=== PATIENT | female | born 1970 | race African-American/Black ===

== ENCOUNTER 2016-05-09 09:06 | Inpatient (IN) | payer MEDICARE ==
[2016-05-09] MEDS ORDERED: Nitroglycerin TAB 0.4 MG* 0.4 MG TAB SL ONE (09:49)
[2016-05-09] MEDS ORDERED: NS 0.9% 1000 ML* 1,000 ML IV ONE (09:49)
--- NOTE | 2016-05-09 09:53 | RAD ---
INDICATION: Chest pain. COMPARISON: Comparison is made with a prior chest x-ray study from January 05, 2014. TECHNIQUE: A portable view of the chest was obtained. FINDINGS: Cardiac and mediastinal contours appear to be within normal limits. The lungs are clear. No pleural effusion is seen. IMPRESSION: NO EVIDENCE FOR ACUTE DISEASE.
[2016-05-09 10:01] LABS: Hematocrit 38 % (35-47); Hemoglobin 12.4 g/dl (12.0-16.0); Mean Corpuscular HGB Conc 33 g/dl (31-36); Mean Corpuscular Hemoglobin 30 pg (27-31); Mean Corpuscular Volume 90 fL (80-97); Mean Platelet Volume 8 um3 (7.4-10.4); Red Blood Count 4.16 10^6/ul (4.0-5.4); Red Cell Distribution Width 14 % (10.5-15)
[2016-05-09] MEDS ORDERED: Aspirin TAB* 325 MG PO ONE (10:13)
--- NOTE | 2016-05-09 10:14 | ED ---
Kaur Diego Anna, scribed for Esther Leyva MD on 05/09/16 at 0931 . HPI Chest Pain - HPI Summary HPI Summary: Patient is a 44 y/o female coming to [facility] presenting with right-sided chest pain that began last night at 2230 last night. The pain lasted twenty minutes and was more intense than her baseline CP. She reports intermittent CP at baseline. At triage, she reported CP of severity 4/10, but this has since resolved. It was exacerbated by deep breaths, which is typical for her CP with her sarcoidosis. Her BP is not normally as high as 170/120, as it was at her pulmonologists office, who sent her here. Her history is significant for pulmonary sarcoidosis and bladder lymphoma. - History of Current Complaint Chief Complaint: EDHypertension Time Seen by Provider: 05/09/16 09:17 Hx Obtained From: Patient Pain Intensity: 4 Pain Scale Used: 0-10 Numeric - Allergy/Home Medications Allergies/Adverse Reactions: Allergies Allergy/AdvReac Type Severity Reaction Status Date / Time Sulfa Antibiotics Allergy Unknown See Comment Verified 05/09/16 09:15 chemo cocktail Allergy Airway Uncoded 05/09/16 09:15 Obstruction PMH/Surg Hx/FS Hx/Imm Hx Endocrine/Hematology History: Denies: Hx Diabetes, Hx Systemic Lupus Erythematosus Cardiovascular History: Reports: Other Cardiovascular Problems/Disorders - SARCOIDOSIS Denies: Hx Congestive Heart Failure, Hx Hypertension, Hx Pacemaker/ICD Respiratory History: Reports: Other Respiratory Problems/Disorders - Pulmonary sarcoidosis History: Reports: Hx Renal Disease - kidney stones 01/2011, Other Problems /Disorders - bladder lymphoma Denies: Hx Dialysis Musculoskeletal History: Denies: Hx Rheumatoid Arthritis Sensory History: Denies: Hx Hearing Aid Psychiatric History: Denies: Hx Panic Disorder - Cancer History Cancer Type, 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 Hx Chemotherapy: Yes - urinary bladder Hx Radiation Therapy: Yes - BLADDER - Surgical History Surgery Procedure, Year, and Place: JAW SURGERY WITH WIRES, bilat lung biopsy; lithrotripsy 2011 - Immunization History Date of Tetanus Vaccine: PT STATES UNSURE Date of Influenza Vaccine: NONE Infectious Disease History: No Infectious Disease History: Denies: Traveled Outside the [place] in Last 30 Days - Family History Known Family History: Negative: Cardiac Disease - Social History Alcohol Use: None Substance Use Type: Reports: Marijuana Substance Use Comment - Amount & Last Used: Weekly Smoking Status (MU): Never Smoked Tobacco Review of Systems Constitutional: Negative Eyes: Negative Positive: Chest Pain Psychological: Normal All Other Systems Reviewed And Are Negative: Yes Physical Exam Triage Information Reviewed: Yes Vital Signs On Initial Exam: Initial Vitals Temp Pulse Resp BP Pulse Ox 96.5 F 80 18 170/90 100 05/09/16 09:07 05/09/16 09:07 05/09/16 09:07 05/09/16 09:07 05/09/16 09:07 Vital Signs Reviewed: Yes Appearance: Positive: Well-Appearing, No Pain Distress Skin: Positive: Warm, Skin Color Reflects Adequate Perfusion, Dry Eyes: Positive: EOMI, JIGAR ENT: Positive: Pharynx normal, TMs normal Neck: Positive: Supple, Nontender Respiratory/Lung Sounds: Positive: Clear to Auscultation, Breath Sounds Present Cardiovascular: Positive: RRR. Negative: Murmur, Rub, Other - gallop Abdomen Description: Positive: Nontender, Soft. Negative: Distended, Guarding, Other: - rebound Bowel Sounds: Positive: Present Diagnostics - Vital Signs Vital Signs Temp Pulse Resp BP Pulse Ox 05/09/16 09:07 96.5 F 80 18 170/90 100 - Laboratory Result Diagrams: 05/09/16 09:45 Lab Statement: Any lab studies that have been ordered have been reviewed, and results considered in the medical decision making process. - Radiology CXR Xray Interpretation: No Acute Changes Radiology Interpretation Completed By: Radiologist - IMPRESSION: NO EVIDENCE FOR ACUTE DISEASE. - EKG 0932 Cardiac Rate: NL - 80 bpm EKG Rhythm: Sinus Rhythm EKG Interpretation: LVH, no STEMI Chest Pain Course/Dx - Course Course Of Treatment: talked with Dr. Akins about pt given cp with new htn pt will be brought into hospital as obv - Diagnoses Provider Diagnoses: HTN (hypertension), Chest pain, Sarcoidosis - Provider Notifications Discussed Care Of Patient With: Dr. Akins (cloth bale header) at 0930. She is thinking the patient should be admitted. Dr. Canela (hospitalist) at 0942. Agrees to accept patient for admission. Discharge - Discharge Plan Condition: Stable Disposition: ADMITTED TO [facility] Referrals: Gustabo Rincon MD [Primary Care Provider] - The documentation as recorded by the Kaur suarez Anna accurately reflects the service I personally performed and the decisions made by me, Esther Leyva MD.
[2016-05-09 10:22] LABS: Albumin 4.3 g/dL (3.2-5.2); BUN/Creatinine Ratio 14.5 (8-20); EGFR African American 94.4 (>60); EGFR Non-African American 73.4 (>60); Globulin 3.2 g/dL (2-4); Total Bilirubin 0.4 mg/dL (0.2-1.0); Total Protein 7.5 g/dL (6.4-8.9)
[2016-05-09 10:24] LABS: Potassium 3.7 mmol/L (3.5-5.0)
[2016-05-09] MEDS ORDERED: Ondansetron INJ* 2 MG/ML VIAL IV PRN (12:22)
[2016-05-09] MEDS ORDERED: Acetaminophen TAB* 325 MG PO PRN (12:22)
[2016-05-09] MEDS ORDERED: Albuterol 2.5 MG/3 ML NEB.SOL* (0.083%) INH PRN (12:40)
[2016-05-09 13:00] LABS: C Reactive Protein 2.68 mg/L (< 5.00)
[2016-05-09] MEDS ORDERED: amLODIPine TAB* 5 MG PO SCH (13:00)
[2016-05-09] MEDS: Mometasone/Formoter 200/5 MDI INH SCH ×2 (13:22→20:21)
[2016-05-09] MEDS: Heparin VIAL(*) 5000 UNITS/ML VIAL (FIVE THOUSAND) SUBCUT SCH ×2 (13:34→22:28)
[2016-05-09] MEDS: Morphine INJ* 2 MG/ML 1 ML SYRINGE IV PRN ×3 (13:36→23:55)
[2016-05-09 14:00] LABS: Erythrocyte Sed Rate 10 mm/Hr (0-14)
[2016-05-09 14:58] LABS: EGFR African American 93.1 (>60); EGFR Non-African American 72.4 (>60)
[2016-05-09] MEDS ORDERED: PARoxetine HCL TAB* 20 MG PO ONE (15:30)
[2016-05-09] MEDS: hydrALAZINE IV* 20 MG/ML VIAL IV SLOW PU PRN (16:21)
[2016-05-09] MEDS: oxyCODONE TAB* 5 MG TAB PO PRN ×2 (16:28→22:28)
--- NOTE | 2016-05-09 17:34 | HP ---
HISTORY AND PHYSICAL: DATE OF ADMISSION: 05/09/16 PRIMARY CARE PROVIDER: Dr. Rincon. PRIMARY DISTILLERY LABORER: Dr. Akins. ATTENDING PHYSICIAN WHILE IN THE HOSPITAL: Leah Foley MD* (report dictated by Renzo Alanis NP). CHIEF COMPLAINT: 1. Chest pain. 2. Elevated blood pressure. HISTORY OF PRESENTING ILLNESS: Mrs. Wilkins is a 46-year-old female patient with a history of asthma, sarcoidosis, in addition to this, has a history of lymphoma, who comes into the ER today after being referred there from Dr. Akins 's office for elevated blood pressure. Blood pressure was 180/100. She was also complaining of having some chest discomfort, worse than her baseline. She states she always has chest pain but today and yesterday she noticed that she was having discomfort mostly on the right side, described as a squeezing sensation. This is going on since last night and throughout the morning today. She states that the pain does not get worse with lying down or sitting up and she has not had any chest discomfort with exertion. She states she always has some degree of chest pain from her sarcoidosis. She states that the pain is worse when she tries to take a deep breath and at times the pain is reproducible. She denies any fevers, but does admit to having some chills recently and does admit to having upper respiratory type symptoms recently in the form of feeling congestion and having some rhinorrhea and she states that she feels short of breath but it is no worse than her baseline. Obviously there was concern on Dr. Akins's part. She came into the ER, it was noted that her blood pressure was significantly elevated. In addition to this, there was concern because of the chest discomfort and the hospitalist service was asked to evaluate for admission. PAST MEDICAL HISTORY: Significant for: 1. Sarcoidosis. 2. Lymphoma. 3. Asthma. PAST SURGICAL HISTORY: Denied. HOME MEDICATIONS: Include: 1. Symbicort 2 puffs b.i.d. 2. Paxil 20 mg p.o. b.i.d. 3. Oxycodone 10 mg p.o. every 6 hours as needed. 4. Prilosec 20 mg p.o. b.i.d. 5. Ativan 0.5 mg p.o. at bedtime. 6. Neurontin 100 mg p.o. daily. 7. Folic acid 1 mg daily. ALLERGIES: Her allergies to medications include SULFA. FAMILY HISTORY: Mother has a history of hypertension and question of TIA. Father had a history of prostate cancer. SOCIAL HISTORY: She does not smoke, does not drink. Surrogate decision maker is her mother. REVIEW OF SYSTEMS: There is no documented fever. She denied having any significant weight change. There was no double vision. There was no ear discharge. There has been rhinorrhea. No sore throat, no thyroid enlargement. She does admit to having some chest pain. There was shortness of breath but no orthopnea. No nocturnal dyspnea. There was no abdominal pain. There was no nausea, no vomiting. No dysuria, no frequency. There was no loss of consciousness, no pruritus and no skin ulcerations. Review of 14 systems completed, all others negative. PHYSICAL EXAMINATION GENERAL: At this time, Mrs. Wilkins is a 46-year-old female patient. She is sitting in the hospital bed. She does not appear to be any acute distress. She is awake and alert. VITAL SIGNS: Reveals blood pressure 167/111 with a pulse of 86, respirations 18 , O2 sat 99%, temperature 96.5. Blood pressure again when she initially came in was as high as 186/102. HEENT: Head is atraumatic, normocephalic. Eyes: EOMs are intact. Sclerae anicteric, not pale. Throat: Oral mucosa appears to be moist. No oropharyngeal erythema. NECK: Supple. LUNGS: Clear to auscultation bilaterally. No wheezes, rales or rhonchi. HEART: Heart sounds S1, S2. Regular rate and rhythm. No murmurs, rubs or gallops. She does have tenderness on palpation of the chest. ABDOMEN: Soft, flat, nontender. Bowel sounds present. EXTREMITIES: Pulses were 2+ throughout. She is able to move all 4 extremities with 5/5 strength. NEUROLOGIC: The patient is awake, she is alert. She is oriented x3. Tongue is midline. Log Roller were equal. She has no gross focal deficits. SKIN: Grossly intact. DIAGNOSTIC STUDIES/LAB DATA: Labs from today revealed WBC of 7.0, RBC of 4.16 , hemoglobin of 12.4, hematocrit of 38, platelet count 266. Sodium was 136, potassium 3.7, chloride of 103, bicarb 29, BUN 12, creatinine 0.83, glucose of 90, lactate 1.0, calcium 9.0, total bili 0.4, AST 34, ALT 20, alk phos 244. Initial troponin was 0, repeat is pending. She did have an EKG obtained today as well, which showed a normal sinus rhythm, rate of 80. She appears to have J-point elevation and LVH by voltage criteria. It was reviewed with the previous EKG. The LVH was not present previously, 3 years ago. No significant changes were noted besides the LVH. She did have a chest x-ray as well which revealed no acute disease. Old medical records were reviewed. ASSESSMENT AND PLAN: Mrs. Wilkins is a 46-year-old female patient coming into the hospital today with complaints of chest discomfort, on evaluation found to have elevated blood pressure and EKG that may be concerning for left ventricular hypertrophy. Hospitalist service was asked to evaluate for admission. She will be admitted under observation status for: 1. Hypertensive urgency. At this point, I am going to get an echo, we will cycle her troponins as she is having the chest discomfort, but I think this is noncardiac chest pain. Her pain is reproducible. It is on the right side and it is worse with inspiration. I am going to add on a D-dimer. We will go ahead and cycle her troponins. We will go ahead and place her on baby aspirin daily for now. She did receive aspirin and nitro in the ED. I have ordered p.r.n. morphine for continued pain. I also ordered amlodipine for blood pressure, p.r.n. hydralazine and we will continue to follow. 2. Sarcoidosis. Follow with Dr. Akins. 3. Upper respiratory infection symptoms. I am going to send off a flu swab but it is probably viral. If she spikes a fever, then I probably would put her on antibiotics but she is afebrile here and her white count is normal. 4. Lymphoma. Follow with Dr. Rincon. 5. Asthma. She is on Symbicort, but we will use Dulera while she is here in the hospital and I will order p.r.n. nebs. 6. DVT prophylaxis. She is moderate risk. I will place her on heparin subcu. 7. Code status. Full code. 8. Fluids, electrolytes and nutrition. She can have a heart healthy diet. TIME SPENT: Time spent on the admission was 60 minutes; , greater than half the time was spent [id number] with the patient, obtaining my history of physical; the other half time was spent going over the plan of care with the patient and implementing plan of care. I did discuss the plan of care with my attending, Dr. Foley; she is in agreement. RENZO ALANIS NP CC: Dr. Rincon; Dr. Akins * [id number]/CPS #: [id number] MTDD
[2016-05-09] MEDS ORDERED: amLODIPine TAB* 5 MG PO ONE (20:01)
[2016-05-09] MEDS: Omeprazole CAP* 20 MG PO SCH (20:40)
[2016-05-09] MEDS: PARoxetine HCL TAB* 20 MG PO SCH (20:41)
[2016-05-09] MEDS: LORazepam TAB(*) 0.5 MG PO SCH (20:41)
[2016-05-10] MEDS: Morphine INJ* 2 MG/ML 1 ML SYRINGE IV PRN ×5 (03:51→23:59)
[2016-05-10] MEDS: Heparin VIAL(*) 5000 UNITS/ML VIAL (FIVE THOUSAND) SUBCUT SCH ×3 (05:26→21:51)
[2016-05-10 06:41] LABS: Hematocrit 36 % (35-47); Hemoglobin 12.1 g/dl (12.0-16.0); Mean Corpuscular HGB Conc 33 g/dl (31-36); Mean Corpuscular Hemoglobin 30 pg (27-31); Mean Corpuscular Volume 90 fL (80-97); Mean Platelet Volume 8 um3 (7.4-10.4); Red Blood Count 4.04 10^6/ul (4.0-5.4); Red Cell Distribution Width 14 % (10.5-15)
[2016-05-10 06:54] LABS: BUN/Creatinine Ratio 8.2 (8-20); Calcium 9.1 mg/dL (8.6-10.3); EGFR African American 91.8 (>60); EGFR Non-African American 71.4 (>60); Potassium 3.2 mmol/L (3.5-5.0)
[2016-05-10] MEDS ORDERED: Potassium Chlor TAB* 20 MEQ TAB.ER PO ONE (07:27)
[2016-05-10] MEDS: Mometasone/Formoter 200/5 MDI INH SCH ×2 (08:26→19:57)
[2016-05-10] MEDS: amLODIPine TAB* 5 MG PO SCH (09:14)
[2016-05-10] MEDS: Gabapentin CAP(*) 100 MG PO SCH (09:15)
[2016-05-10] MEDS: Omeprazole CAP* 20 MG PO SCH ×2 (09:17→21:51)
[2016-05-10] MEDS: Aspirin EC Low Dose* 81 MG TAB.EC PO SCH (09:18)
[2016-05-10] MEDS: PARoxetine HCL TAB* 20 MG PO SCH ×2 (09:18→21:50)
[2016-05-10] MEDS: Folic Acid TAB* 1 MG PO SCH (09:18)
[2016-05-10] MEDS: oxyCODONE TAB* 5 MG TAB PO PRN ×2 (11:41→17:22)
[2016-05-10] MEDS: hydrALAZINE IV* 20 MG/ML VIAL IV SLOW PU PRN (12:49)
--- NOTE | 2016-05-10 13:02 | PN ---
Subjective Date of Service: 05/10/16 Interval History: Patient seen and examined at bedside. Denies fever, chills, shortness of breath (does have some at baseline), V/D. Pt reports intermittent nausea since her sarcodosis diagnosis, when zofran doesn't get rid of the nausea, she reports eating salt. Pt reports right sided chest pain, she reports that this is similar to her usual pain from her sarcoidosis. She feels that there is nothing that makes the pain worse, or brings it on, but pain medication is helping. She also reports recently having some respiratory symptoms and a cough and her pain has been worse since. Pt denies using over the counter medications for her cold symptoms. Tele: Sinus rhythm, rate 80-100's. Occasionally tachy in the 120's. Family History: Unchanged from Admission Social History: Unchanged from Admission Past Medical History: Unchanged from Admission Objective Active Medications: Acetaminophen (Tylenol Tab*) 650 mg PO Q4H PRN Reason: FEVER/PAIN Albuterol (Ventolin 2.5 Mg/3 Ml Neb.Ariane*) 2.5 mg INH Q2H PRN Reason: SOB/ WHEEZING Amlodipine Besylate (Norvasc Tab*) 10 mg PO DAILY [facility] Aspirin (Aspirin Ec Low Dose*) 81 mg PO DAILY [facility] Folic Acid (Folvite Tab*) 1 mg PO DAILY [facility] Gabapentin (Neurontin Cap(*)) 100 mg PO DAILY [facility] Heparin Sodium (Porcine) (Heparin Vial(*)) 5,000 units SUBCUT Q8HR [facility] Hydralazine HCl (Apresoline Iv*) 5 mg IV SLOW PU Q6H PRN Reason: BLOOD PRESSURE Lorazepam (Ativan Tab(*)) 0.5 mg PO BEDTIME [facility] Mometasone Furoate/Formoterol Fumar (Dulera 200/5 Mdi*) 2 puff INH BID [facility] Morphine Sulfate (Morphine Inj (Syringe)*) 2 mg IV Q4H PRN Reason: PAIN - MILD Omeprazole (Prilosec Cap*) 20 mg PO BID [facility] Ondansetron HCl (Zofran Inj*) 4 mg IV Q6H PRN Reason: NAUSEA Oxycodone HCl (Roxycodone Tab*) 10 mg PO Q6H PRN Reason: PAIN Paroxetine HCl (Paxil Tab*) 20 mg PO BID [facility] Vital Signs 05/09/16 05/09/1605/09/17 13:24 13:36 14:36 Temperature Pulse Rate 85 Respiratory 15 18 16 Rate Blood Pressure (mmHg) O2 Sat by Pulse 98 Oximetry 05/09/16 05/09/16 05/09/16 16:00 16:06 16:10 Temperature 99.0 F Pulse Rate 81 94 Respiratory 18 Rate Blood Pressure 173/97 174/91 (mmHg) O2 Sat by Pulse 100 100 Oximetry 05/09/16 05/09/16 05/09/16 19:23 20:00 20:16 Temperature 98.8 F Pulse Rate 83 83 Respiratory 17 16 17 Rate Blood Pressure 177/97 (mmHg) O2 Sat by Pulse 96 99 Oximetry 05/09/16 05/09/16 05/09/16 20:41 22:00 22:28 Temperature Pulse Rate 89 Respiratory 17 18 17 Rate Blood Pressure 166/88 (mmHg) O2 Sat by Pulse 100 Oximetry 05/09/16 05/09/16 05/09/16 22:41 23:47 23:55 Temperature 98.2 F Pulse Rate 87 Respiratory 18 18 19 Rate Blood Pressure 164/93 (mmHg) O2 Sat by Pulse 97 Oximetry 05/10/16 05/10/16 05/10/16 03:36 03:51 04:51 Temperature 99.0 F Pulse Rate 72 Respiratory 16 16 17 Rate Blood Pressure 158/92 (mmHg) O2 Sat by Pulse 99 Oximetry 05/10/16 05/10/16 05/10/16 07:39 08:00 08:27 Temperature 98.0 F Pulse Rate 83 75 Respiratory 16 16 15 Rate Blood Pressure 148/89 (mmHg) O2 Sat by Pulse 100 96 97 Oximetry 05/10/16 05/10/16 05/10/16 11:15 11:41 11:56 Temperature 97.5 F Pulse Rate 87 Respiratory 16 16 16 Rate Blood Pressure 179/90 (mmHg) O2 Sat by Pulse 100 Oximetry Oxygen Devices in Use Now: None Appearance: NAD, sitting up in bed Eyes: No Scleral Icterus, PERRLA Ears/Nose/Mouth/Throat: NL Teeth, Lips, Gums, Mucous Membranes Moist Respiratory: Symmetrical Chest Expansion and Respiratory Effort, Clear to Auscultation Cardiovascular: NL Sounds; No Murmurs; No JVD, RRR Abdominal: NL Sounds; No Tenderness; No Distention Extremities: No Edema Skin: No Rash or Ulcers Neurological: Alert and Oriented x 3, NL Muscle Strength and Tone Lines/Tubes/Other Access: Clean, Dry and Intact Peripheral IV - site benign Nutrition: Taking PO's Result Diagrams: 05/10/16 05:47 05/10/16 05:47 Microbiology and Other Data: Microbiology 05/09/16 14:15 Influenza Types A,B Antigen ([facility]) - Final Nasal Specimen received for Influenza A/B Molecular testing Assess/Plan/Problems-Billing Assessment: - Patient Problems (1) Hypertensive urgency Code(s): I16.0 - HYPERTENSIVE URGENCY SNOMED Code(s): 150252078 Comment: - SBP was improving overnight, but elevated around 11 am today. - Pt encouraged to decrease salt intake, she reports a high salt intake. - Continue amlodipine, will concider adding another agent if BP remains elevated - Continue PRN htdralizine for SBP > 170 - Pt would benefit from a referral to [facility] at discharge (2) Chest discomfort Code(s): R07.89 - OTHER CHEST PAIN SNOMED Code(s): 238613486 Comment: - Suspect this is noncardiac in nature as the pain is reproducible - Troponion 0.00, 0.01 and 0.01 - Will get an echo in the morning (3) Electrolyte abnormality Code(s): E87.8 - OTH DISORDERS OF ELECTROLYTE AND FLUID BALANCE, NEC SNOMED Code(s): 669335971 Comment: - Hypokalemia. Given replacement today and will recheck labs in the morning. Will add a magnesium to this mornings labs (4) URI (upper respiratory infection) Code(s): J06.9 - ACUTE UPPER RESPIRATORY INFECTION, UNSPECIFIED SNOMED Code(s) : 67817097 Comment: - afebrile and no leukocytosis, no need for ABX at this time - Supportive care (5) Sarcoidosis of lung Code(s): D86.0 - SARCOIDOSIS OF LUNG SNOMED Code(s): 66244472 Comment: - Continue to follow with Dr. Akins outpatient (6) Lymphoma Comment: - Continue to follow Dr. Rincon outpatient (7) Asthma Code(s): J45.909 - UNSPECIFIED ASTHMA, UNCOMPLICATED SNOMED Code(s): 031519596 Comment: - Continue Dulera (in place of home Symbicort) and PRN nebs (8) DVT prophylaxis Code(s): RMN2352 - SNOMED Code(s): 202483268 Comment: - SQ heparin (9) Full code status Code(s): Z78.9 - OTHER SPECIFIED HEALTH STATUS SNOMED Code(s): 774120899 Status and Disposition: OBV to Inpatient. Discharge to home when medically stable and blood pressure is better controlled.
[2016-05-10] MEDS: LORazepam TAB(*) 0.5 MG PO SCH (21:50)
[2016-05-11] MEDS: Morphine INJ* 2 MG/ML 1 ML SYRINGE IV PRN ×3 (05:32→20:00)
[2016-05-11] MEDS: Heparin VIAL(*) 5000 UNITS/ML VIAL (FIVE THOUSAND) SUBCUT SCH ×3 (05:33→22:44)
[2016-05-11 06:22] LABS: BUN/Creatinine Ratio 17.8 (8-20); Calcium 9.9 mg/dL (8.6-10.3); EGFR African American 109.4 (>60); EGFR Non-African American 85.1 (>60); Potassium 3.6 mmol/L (3.5-5.0)
[2016-05-11] MEDS: amLODIPine TAB* 5 MG PO SCH (07:57)
[2016-05-11] MEDS: Folic Acid TAB* 1 MG PO SCH (07:57)
[2016-05-11] MEDS: Aspirin EC Low Dose* 81 MG TAB.EC PO SCH (07:57)
[2016-05-11] MEDS: PARoxetine HCL TAB* 20 MG PO SCH ×2 (07:57→20:04)
[2016-05-11] MEDS: Omeprazole CAP* 20 MG PO SCH ×2 (07:57→20:04)
[2016-05-11] MEDS: Gabapentin CAP(*) 100 MG PO SCH (07:57)
[2016-05-11] MEDS: oxyCODONE TAB* 5 MG TAB PO PRN ×3 (08:04→22:50)
[2016-05-11] MEDS: Mometasone/Formoter 200/5 MDI INH SCH ×2 (08:42→23:13)
--- NOTE | 2016-05-11 10:48 | PN ---
Subjective Date of Service: 05/11/16 Interval History: Patient seen and examined at bedside. Pt states that he right sided chest discomfort is at about her baseline today. Denies fever, chills, shortness of breath, chest discomfort, N/V/D, headaches, or palpitations. Tele: Sinus rhythm, rate 70-80's. Pt has been noted to be tachy when up and in the bathroom. Family History: Unchanged from Admission Social History: Unchanged from Admission Past Medical History: Unchanged from Admission Objective Active Medications: Acetaminophen (Tylenol Tab*) 650 mg PO Q4H PRN Reason: FEVER/PAIN Albuterol (Ventolin 2.5 Mg/3 Ml Neb.Ariane*) 2.5 mg INH Q2H PRN Reason: SOB/ WHEEZING Amlodipine Besylate (Norvasc Tab*) 10 mg PO DAILY [facility] Aspirin (Aspirin Ec Low Dose*) 81 mg PO DAILY [facility] Folic Acid (Folvite Tab*) 1 mg PO DAILY [facility] Gabapentin (Neurontin Cap(*)) 100 mg PO DAILY [facility] Heparin Sodium (Porcine) (Heparin Vial(*)) 5,000 units SUBCUT Q8HR [facility] Hydralazine HCl (Apresoline Iv*) 5 mg IV SLOW PU Q6H PRN Reason: BLOOD PRESSURE Lorazepam (Ativan Tab(*)) 0.5 mg PO BEDTIME [facility] Mometasone Furoate/Formoterol Fumar (Dulera 200/5 Mdi*) 2 puff INH BID [facility] Morphine Sulfate (Morphine Inj (Syringe)*) 2 mg IV Q4H PRN Reason: PAIN - MILD Omeprazole (Prilosec Cap*) 20 mg PO BID [facility] Ondansetron HCl (Zofran Inj*) 4 mg IV Q6H PRN Reason: NAUSEA Oxycodone HCl (Roxycodone Tab*) 10 mg PO Q6H PRN Reason: PAIN Paroxetine HCl (Paxil Tab*) 20 mg PO BID [facility] Vital Signs 05/10/16 05/10/16 05/10/16 13:41 14:18 15:03 Temperature Pulse Rate Respiratory 16 16 Rate Blood Pressure (mmHg) O2 Sat by Pulse 100 Oximetry 05/10/16 05/10/16 05/10/16 15:18 16:05 17:22 Temperature 98.3 F Pulse Rate 82 Respiratory 16 18 16 Rate Blood Pressure 142/75 (mmHg) O2 Sat by Pulse 100 Oximetry 05/10/16 05/10/16 05/10/16 19:22 19:33 19:58 Temperature Pulse Rate 83 Respiratory 17 16 15 Rate Blood Pressure (mmHg) O2 Sat by Pulse 98 Oximetry 05/10/16 05/10/16 05/10/16 20:00 20:20 20:33 Temperature 98.0 F Pulse Rate 84 Respiratory 16 17 17 Rate Blood Pressure 165/84 (mmHg) O2 Sat by Pulse 99 Oximetry 05/10/16 05/10/16 05/10/16 21:50 23:50 23:59 Temperature Pulse Rate Respiratory 18 18 18 Rate Blood Pressure (mmHg) O2 Sat by Pulse Oximetry 05/11/16 05/11/16 05/11/16 00:08 00:59 03:58 Temperature 97.9 F 97.9 F Pulse Rate 73 76 Respiratory 16 16 16 Rate Blood Pressure 148/76 152/83 (mmHg) O2 Sat by Pulse 100 97 Oximetry 05/11/16 05/11/16 05/11/16 05:32 06:32 07:47 Temperature 98.2 F Pulse Rate 97 Respiratory 17 17 14 Rate Blood Pressure 155/85 (mmHg) O2 Sat by Pulse 100 Oximetry 05/11/16 05/11/16 05/11/16 07:57 08:00 08:04 Temperature Pulse Rate Respiratory 14 14 14 Rate Blood Pressure (mmHg) O2 Sat by Pulse 100 Oximetry 05/11/16 08:42 Temperature Pulse Rate 76 Respiratory 15 Rate Blood Pressure (mmHg) O2 Sat by Pulse 98 Oximetry Oxygen Devices in Use Now: None Appearance: NAD, sitting up in a chair Eyes: No Scleral Icterus, PERRLA Respiratory: Symmetrical Chest Expansion and Respiratory Effort, Clear to Auscultation Cardiovascular: NL Sounds; No Murmurs; No JVD, RRR, - - Reproducible right sternal chest pain. Abdominal: NL Sounds; No Tenderness; No Distention Extremities: No Edema Skin: No Rash or Ulcers Neurological: Alert and Oriented x 3, NL Muscle Strength and Tone Lines/Tubes/Other Access: Clean, Dry and Intact Peripheral IV - site benign Nutrition: Taking PO's Result Diagrams: 05/10/16 05:47 05/11/16 05:42 Microbiology and Other Data: Microbiology 05/09/16 14:15 Influenza Types A,B Antigen ([facility]) - Final Nasal Specimen received for Influenza A/B Molecular testing Assess/Plan/Problems-Billing Assessment: - Patient Problems (1) Hypertensive urgency Code(s): I16.0 - HYPERTENSIVE URGENCY SNOMED Code(s): 314887361 Comment: - SBP was improving - Pt encouraged to decrease salt intake, she reports a high salt intake. - Continue amlodipine - Continue PRN hydralizine for SBP > 170 - Pt would benefit from a referral to [facility] at discharge (2) Chest discomfort Code(s): R07.89 - OTHER CHEST PAIN SNOMED Code(s): 345257500 Comment: - Suspect this is noncardiac in nature as the pain is reproducible - Troponion 0.00, 0.01 and 0.01 - Echo pending (3) Electrolyte abnormality Code(s): E87.8 - OTH DISORDERS OF ELECTROLYTE AND FLUID BALANCE, NEC SNOMED Code(s): 632772970 Comment: - Hypokalemia. Resolved (4) URI (upper respiratory infection) Code(s): J06.9 - ACUTE UPPER RESPIRATORY INFECTION, UNSPECIFIED SNOMED Code(s) : 50404226 Comment: - afebrile and no leukocytosis, no need for ABX at this time - Supportive care (5) Sarcoidosis of lung Code(s): D86.0 - SARCOIDOSIS OF LUNG SNOMED Code(s): 97579625 Comment: - Continue to follow with Dr. Akins outpatient (6) Lymphoma Comment: - Continue to follow Dr. Rincon outpatient (7) Asthma Code(s): J45.909 - UNSPECIFIED ASTHMA, UNCOMPLICATED SNOMED Code(s): 062053631 Comment: - Continue Dulera (in place of home Symbicort) and PRN nebs (8) DVT prophylaxis Code(s): JEY0145 - SNOMED Code(s): 593213105 Comment: - SQ heparin (9) Full code status Code(s): Z78.9 - OTHER SPECIFIED HEALTH STATUS SNOMED Code(s): 651168197 Status and Disposition: Inpatient. Discharge to home when medically stable, possibly later today after echo.
--- NOTE | 2016-05-11 12:27 | ECHO ---
Patient: LATA PELAYO [facility] Rec#: [id number] : 1970 Date: 05/11/2016 Age: 46y Height: 175.3 cm / 69.0 in Weight: 80.7 kg / 177.9 lbs Sex: F BSA: 2 Room#: [facility] Admit Date#: 05/09/2016 Type: Inpatient Referring: Renzo Alanis NP Reading: Romeo Pinto MD Egg Breaker: Emmy Lopez RN RDCS CC: MIRACLE CARRANZA CC: Gustabo Rincon MD Transthoracic Echocardiogram Indication: Chest pain, HTN BP: 152/83 HR: 82 Rhythm: NSR Findings History: Sarcoidosis, lymphoma, asthma Technical Comments: The study quality is fair. The study is technically limited due to patient body habitus. Completed at 1200. Left Ventricle: The left ventricular chamber size is normal. Mild concentric left ventricular hypertrophy is observed. There is diffuse global hypokinesis of the left ventricle. There is mildly decreased left ventricular systolic function. The estimated ejection fraction is 45-50%. closer to 50%. Mild relative hypokinesis of the inferior and inferoseptal segments in the apical views. Abnormal left ventricular diastolic filling is observed, consistent with impaired relaxation. Left Atrium: The left atrium is slightly dilated. Right Ventricle: The right ventricular chamber size and systolic function are within normal limits. Right Atrium: The right atrium is slightly dilated. There is evidence of an atrial septal aneurysm. Aortic Valve: The aortic valve is trileaflet. The aortic valve leaflets are mildly thickened. There is no evidence of aortic regurgitation. There is no evidence of aortic stenosis. Mitral Valve: The mitral valve leaflets are mildly thickened. There is trace to mild mitral regurgitation. There is no evidence of mitral stenosis. Tricuspid Valve: The tricuspid valve leaflets are normal. There is trace tricuspid regurgitation. Unable to estimate the right ventricular systolic pressure. There is no tricuspid stenosis. Pulmonic Valve: The pulmonic valve appears normal. There is a trace pulmonic regurgitation. Pericardium: There is no significant pericardial effusion. A pericardial fat pad is visualized. Aorta: There is no dilatation of the ascending aorta. There is no dilatation of the aortic arch. There is no dilation of the aortic root. Pulmonary Artery: The main pulmonary artery appears normal. Venous: The inferior vena cava appears normal in size. There is a greater than 50% respiratory change in the inferior vena cava dimension. Summary: There was not any prior study for comparison. Conclusions The study is technically limited due to patient body habitus. The right atrium is slightly dilated. There is evidence of an atrial septal aneurysm. No obvious PFO by color flow. There is trace to mild mitral regurgitation. There is trace tricuspid regurgitation. Mild concentric left ventricular hypertrophy is observed. There is mildly decreased left ventricular systolic function. The estimated ejection fraction is 45-50%. closer to 50%. Mild relative hypokinesis of the inferior and inferoseptal segments in the apical views. Abnormal left ventricular diastolic filling is observed, consistent with impaired relaxation. Measurements Name Value Normal Range RVIDd (AP) 2D 2.6 cm (0.9 - 2.6) RVDdMajor (2D) 2.5 cm (2.2 - 4.4) RAd ISD 4CH 5 cm (3.4 - 4.9) RA (A4C)W 3.2 cm (2.9 - 4.6) IVSd (2D) 1.4 cm (0.6 - 1) LVPWd (2D) 1.2 cm (0.6 - 1) LVIDd (2D) 4.3 cm (3.6 - 5.4) LVIDs (2D) 3.3 cm - LV FS (2D) 23 % (25 - 45) Aortic Annulus 2.3 cm (1.4 - 2.6) Ao root diameter (2D) 2.8 cm (2.1 - 3.5) Ascending Ao 2.7 cm (2.1 - 3.4) Aortic arch 2.9 cm (1.8 - 3.4) LA dimension (AP) 2D 3.5 cm (2.3 - 3.8) LAd ISD 4CH 5.5 cm (2.9 - 5.3) LA ISD 4CH W 3.3 cm (2.5 - 4.5) Name Value Normal Range LA ESV SP 4CH (A/L) 33 ml - LA ESV SP 2CH (A/L) 33 ml - LA ESV BP (A/L) 38 ml - LA ESV BP (A/L) index 19.2 ml/m2 - LA ESV SP 4CH (MOD) 30 ml - LA ESV SP 2CH (MOD) 32 ml - Name Value Normal Range MV E-wave Vmax 0.61 m/sec - MV deceleration time 257 msec - MV A-wave Vmax 0.91 m/sec - MV E:A ratio 0.7 ratio - LV septal e' Vmax 0.05 m/sec - LV lateral e' Vmax 0.1 m/sec - LV E:e' septal ratio 12.2 ratio - LV E:e' lateral ratio 6.1 ratio - Name Value Normal Range AV Vmax 1.4 m/sec - LVOT Vmax 1 m/sec - ANNA Vmax 0.76 m/sec - Name Value Normal Range IVC diameter 1.1 cm - Name Value Normal Range PV Vmax 1.1 m/sec -
[2016-05-11] MEDS: Metoprolol Tartrate TAB* 25 MG PO SCH (20:04)
[2016-05-11] MEDS: LORazepam TAB(*) 0.5 MG PO SCH (22:44)
[2016-05-12] MEDS: Morphine INJ* 2 MG/ML 1 ML SYRINGE IV PRN ×2 (01:33→05:49)
[2016-05-12] MEDS: Heparin VIAL(*) 5000 UNITS/ML VIAL (FIVE THOUSAND) SUBCUT SCH ×2 (05:49→14:09)
[2016-05-12 05:50] LABS: Hematocrit 38 % (35-47); Hemoglobin 12.4 g/dl (12.0-16.0); Mean Corpuscular HGB Conc 33 g/dl (31-36); Mean Corpuscular Hemoglobin 30 pg (27-31); Mean Corpuscular Volume 90 fL (80-97); Mean Platelet Volume 8 um3 (7.4-10.4); Red Blood Count 4.21 10^6/ul (4.0-5.4); Red Cell Distribution Width 14 % (10.5-15)
[2016-05-12] MEDS: Mometasone/Formoter 200/5 MDI INH SCH (08:56)
[2016-05-12] MEDS ORDERED: Lisinopril TAB* 5 MG PO SCH (09:00)
[2016-05-12] MEDS ORDERED: LORazepam TAB(*) 0.5 MG PO ONE (09:18)
[2016-05-12 11:32] VITALS: BP 122/74
[2016-05-12] MEDS ORDERED: Regadenoson* 0.4 MG/5 ML SYRINGE ONE (11:56)
--- NOTE | 2016-05-12 13:06 | RAD ---
INDICATION: Chest pain COMPARISON: None TECHNIQUE: A single day SPECT protocol was utilized. Rest images were acquired following the intravenous injection of 10.98 millicuries of technetium 99m tetrofosmin. Pharmacologic stress images were acquired following the intravenous administration of 25.53 millicuries of technetium 99m tetrofosmin. FINDINGS: There are no defects of the stress-induced or fixed nature. The cardiac chamber size is normal. There are no focal wall motion abnormalities. There is mild, diffuse, hypokinesis with a mildly depressed ejection calculated at 47% during stress. IMPRESSION: MILD DIFFUSE HYPOKINESIS WITH MILDLY DEPRESSED EJECTION FRACTION. NO STRESS-INDUCED OR ISCHEMIC DEFECTS ASSESSMENT: Intermediate risk Based on imaging criteria from ACC/AHA 2002 Guideline Update for the Management of Patients With Chronic Stable Angina Table 23. Noninvasive Risk Stratification.
--- NOTE | 2016-05-12 13:44 | PN ---
Subjective Date of Service: 05/12/16 Interval History: Patient reports she "feels the same maybe a little better" continues to have reproducible chest pain but states this has been her baseline for 2 years. Denies SOB. No fevers or chills. Would like to go home. Family History: Unchanged from Admission Social History: Unchanged from Admission Past Medical History: Unchanged from Admission Objective Active Medications: Acetaminophen (Tylenol Tab*) 650 mg PO Q4H PRN PRN Reason: FEVER/PAIN Last Admin: 05/11/16 10:04 Dose: 650 mg Albuterol (Ventolin 2.5 Mg/3 Ml Neb.Ariane*) 2.5 mg INH Q2H PRN PRN Reason: SOB/WHEEZING Aspirin (Aspirin Ec Low Dose*) 81 mg PO DAILY [facility] Last Admin: 05/11/16 07:57 Dose: 81 mg Folic Acid (Folvite Tab*) 1 mg PO DAILY [facility] Last Admin: 05/11/16 07:57 Dose: 1 mg Gabapentin (Neurontin Cap(*)) 100 mg PO DAILY [facility] Last Admin: 05/11/16 07:57 Dose: 100 mg Heparin Sodium (Porcine) (Heparin Vial(*)) 5,000 units SUBCUT Q8HR [facility] Last Admin: 05/12/16 05:49 Dose: 5,000 units Hydralazine HCl (Apresoline Iv*) 5 mg IV SLOW PU Q6H PRN PRN Reason: BLOOD PRESSURE Last Admin: 05/10/16 12:49 Dose: 5 mg Lisinopril (Prinivil Tab*) 5 mg PO DAILY [facility] Lorazepam (Ativan Tab(*)) 0.5 mg PO BEDTIME [facility] Last Admin: 05/11/16 22:44 Dose: 0.5 mg Metoprolol Tartrate (Lopressor Tab*) 25 mg PO BID [facility] Last Admin: 05/11/16 20:04 Dose: 25 mg Mometasone Furoate/Formoterol Fumar (Dulera 200/5 Mdi*) 2 puff INH BID [facility] Last Admin: 05/12/16 08:56 Dose: 2 puff Morphine Sulfate (Morphine Inj (Syringe)*) 2 mg IV Q4H PRN PRN Reason: PAIN - MILD Last Admin: 05/12/16 05:49 Dose: 2 mg Omeprazole (Prilosec Cap*) 20 mg PO BID [facility] Last Admin: 05/11/16 20:04 Dose: 20 mg Ondansetron HCl (Zofran Inj*) 4 mg IV Q6H PRN PRN Reason: NAUSEA Last Admin: 05/12/16 08:30 Dose: 4 mg Oxycodone HCl (Roxycodone Tab*) 10 mg PO Q6H PRN PRN Reason: PAIN Last Admin: 05/11/16 22:50 Dose: 10 mg Paroxetine HCl (Paxil Tab*) 20 mg PO BID [facility] Last Admin: 05/11/16 20:04 Dose: 20 mg 05/12/16 05/12/16 05/12/16 07:28 08:54 08:56 Temperature 98.1 F Pulse Rate 73 68 Respiratory 14 14 Rate Blood Pressure 130/75 (mmHg) O2 Sat by Pulse 98 99 98 Oximetry 05/12/16 05/12/16 05/12/16 09:17 09:37 11:18 Temperature 98.1 F 98.7 F Pulse Rate 76 80 Respiratory 18 18 18 Rate Blood Pressure 150/83 122/74 (mmHg) O2 Sat by Pulse 96 98 Oximetry Oxygen Devices in Use Now: None Appearance: 46 yo female sitting up in bed in NAD. A+O x3. Eyes: No Scleral Icterus, PERRLA Ears/Nose/Mouth/Throat: NL Teeth, Lips, Gums Neck: NL Appearance and Movements; NL JVP Respiratory: Symmetrical Chest Expansion and Respiratory Effort, Clear to Auscultation Cardiovascular: NL Sounds; No Murmurs; No JVD, RRR, No Edema, - - tender to palpation over left upper sternal border Abdominal: NL Sounds; No Tenderness; No Distention Lymphatic: No Cervical Adenopathy Extremities: No Edema, No Clubbing, Cyanosis Skin: No Rash or Ulcers, No Nodules or Sclerosis Neurological: Alert and Oriented x 3, NL Sensation, NL Gait, NL Muscle Strength and Tone Lines/Tubes/Other Access: Clean, Dry and Intact Peripheral IV Nutrition: Taking PO's Result Diagrams: 05/12/16 05:01 05/11/16 05:42 Microbiology and Other Data: Microbiology 05/09/16 14:15 Influenza Types A,B Antigen (MAGALIE) - Final Nasal Specimen received for Influenza A/B Molecular testing Assess/Plan/Problems-Billing Assessment: Ms. Gaspar is a 46 yo female with of sarcoidosis, hx of lymphoma who presented to the ED on 05/[address] Bar office for HTN and report of CP. - Patient Problems (1) Hypertensive urgency Comment: - SBP good control with Metoprolol and lisinopril - Pt encouraged to decrease salt intake, she reports a high salt intake. - renal function normal (2) Chest discomfort Comment: - Suspect this is noncardiac in nature as the pain is reproducible - Troponion 0.00, 0.01 and 0.01 - Echo showing EF 50% with abnormal left ventricular diastolic filing, consistent with impaired relaxation. Mild relative hypokinesis of the iinferior and inferoseptal segmant in the apical view. Kacey-scan strest test low risk; nuclear medicine test places her at Indermidiate risk due to depressed EF. Discussed with Dr. Jiang. - pt stable for DC to home. (3) URI (upper respiratory infection) Comment: - afebrile and no leukocytosis, no need for ABX at this time - Supportive care (4) Asthma Comment: - Continue Dulera (in place of home Symbicort) and PRN nebs (5) Sarcoidosis of lung Comment: - Continue to follow with Dr. Akins outpatient (6) Lymphoma Comment: - Continue to follow Dr. Rincon outpatient (7) Full code status (8) DVT prophylaxis Status and Disposition: Inpatient. Discharge to home today.
[2016-05-12] MEDS: Gabapentin CAP(*) 100 MG PO SCH (14:07)
[2016-05-12] MEDS: Omeprazole CAP* 20 MG PO SCH (14:08)
[2016-05-12] MEDS: PARoxetine HCL TAB* 20 MG PO SCH (14:08)
[2016-05-12] MEDS: Folic Acid TAB* 1 MG PO SCH (14:08)
[2016-05-12] MEDS: Aspirin EC Low Dose* 81 MG TAB.EC PO SCH (14:08)
[2016-05-12] MEDS: Metoprolol Tartrate TAB* 25 MG PO SCH (14:09)
[2016-05-12] MEDS: oxyCODONE TAB* 5 MG TAB PO PRN (14:14)
--- NOTE | 2016-05-13 15:59 | DS ---
DISCHARGE SUMMARY: DATE OF ADMISSION: 05/09/16 DATE OF DISCHARGE: 05/12/16 PROVIDER: Osvaldo Saldaña NP. ATTENDING PHYSICIAN: Trinity Bright MD *(report dictated by Osvaldo Saldaña NP). PRIMARY CARE PROVIDER: Dr. Rincon. KELP GATHERER: Dr. Akins. DISCHARGE DIAGNOSES: 1. Chest pain, suspect musculoskeletal, possibly costochondritis. 2. Hypertensive urgency, newly diagnosed hypertension, started on medication this hospitalization. 3. Upper respiratory viral illness. SECONDARY DIAGNOSES: 1. Sarcoidosis, followed by Dr. Akins. 2. History of lymphoma. 3. Asthma. DISCHARGE MEDICATIONS: 1. Paxil 20 mg p.o. b.i.d. 2. Gabapentin 100 mg p.o. daily. 3. Omeprazole 20 mg p.o. b.i.d. 4. Ativan 0.5 mg p.o. at bedtime. 5. Folic acid 1 mg p.o. daily. 6. Oxycodone HCl 10 mg p.o. q.6 hours p.r.n. New medications: 1. Metoprolol tartrate 25 mg p.o. b.i.d. 2. Lisinopril 5 mg p.o. daily. HISTORY OF PRESENT ILLNESS AND HOSPITAL COURSE: Please see history and physical by Cheryle Garcia NP, for full admission details, but in summary, this is a 46-year-old female with a past medical history of asthma, sarcoidosis, history of lymphoma, who presented to the emergency department on 05/09/16 with complaint of chest pain, sent from Dr. Akins's office for elevated blood pressures. In the emergency department, she was noted to have a blood pressure of 180/100. She reported her chest discomfort was mid sternum, radiating to her left and right upper chest mahmood. She describes this as a squeezing sensation. She reported that she always has some chest discomfort, but it appeared to be worse, ongoing since last night and throughout the morning of admission. The patient denied any worsening chest pain with exertion or position change. She denied orthopnea or lower extremity swelling. The patient did have reproducible chest pain on evaluation. The patient denied any fevers, but possibly did have chills recently and admitted to having upper respiratory symptoms with nasal congestion and rhinorrhea. In regards to the patient's blood pressure, she denies a diagnosis of hypertension in the past. She was initially started on amlodipine, which was discontinued, and she was started on metoprolol and lisinopril. Over the past 24 to 48 hours, the patient has had much better blood pressure control, this morning her blood pressure was 122/74. The patient was admitted to telemetry where she was monitored with no arrhythmias noted. Her troponins were 0.00, 0.01, and 0.01. She underwent a cardiac nuclear stress test. Initially she was tried for an exercise portion which she was unable to tolerate, so she was switched to a chemical which placed her at low risk. No arrhythmias or ischemia was noted. Her nuclear portion showed impression "mild diffuse hypokinesis, mildly depressed ejection fraction. No stress induced or ischemic defects." This places her at intermediate risk. I discussed the case with Dr. Jiang, who stated that due to her EF was mildly decreased at 47%, this placed her at intermediate risk. No further cardiac testing recommended. The patient also underwent a transthoracic echocardiogram which showed "the study is technically limited due to the patient's body habitus. The right atrium is slightly dilated. There is evidence of atrial septum aneurysm. No obvious PFO by color flow. There is trace to mild mitral regurgitation. There is trace tricuspid regurgitation. Mild concentric left ventricular hypertrophy is observed. There is mildly decreased left ventricular systolic function. The estimated ejection fraction is 45% to 50%, closer to 50%. Mild relative hypokinesis of the inferior and inferoseptal segments in the apical views. Abnormal left ventricular diastolic function was observed, consistent with impaired relaxation." The patient was evaluated at the bedside this morning. Reports that she continues to have some reproducible chest pain in her mid sternum, closer to the right sternal border. This was reproduced on evaluation. The patient reports that this was the pain that she was feeling and thinks most likely is secondary to her sarcoidosis and states that she has chest pain at her baseline. The patient was educated on being compliant with her hypertensive medications and low salt diet. The patient is stable for discharge home. DISCHARGE PLAN: 1. Discharge to home. Follow up with Dr. Rincon. The patient has an appointment with Dr. Rincon on 05/16/16 at 2:40 p.m. for followup. 2. The patient was referred to [facility]. 3. Follow up with Dr. Akins. The patient was instructed to call her office today for a followup as their appointment this week got cut short due to the patient was sent to the emergency department for hypertension. TIME SPENT: Approximately 60 minutes has been spent on this discharge. OSVALDO SALDAÑA NP CC: Dr. Rincon; Dr. Akins* [id number]/[place] #: [id number] [facility]
== END 2016-05-12 15:32 | disposition home or self-care (01) | DRG 305 ==
LOC: ED 09:06 → MEDTELE 09:46 → OBSVTOIN 05-10 13:21
PROVIDERS: ADMIT Internal Medicine; ATTEND Hospitalist
DX: I16.0 Hypertensive urgency (principal); C85.90 Non-Hodgkin lymphoma, unspecified, unspecified site; I25.3 Aneurysm of heart; M94.0 Chondrocostal junction syndrome [Tietze]; R07.89 Other chest pain; J06.9 Acute upper respiratory infection, unspecified; D86.9 Sarcoidosis, unspecified; J45.909 Unspecified asthma, uncomplicated; Z79.891 Long term (current) use of opiate analgesic; Z79.899 Other long term (current) drug therapy; Z88.2 Allergy status to sulfonamides; Z82.49 Family history of ischemic heart disease and other diseases of the circulatory system; Z80.42 Family history of malignant neoplasm of prostate
CPT/HCPCS: 36415; 71010; 78452; 80048; 80053; 82565; 83605; 83735; 84484; 84520; 85025; 85379; 85610; 85652; 85730; 86140; 87502; 93005; 93017; 93306; 94640; 94660; 94760; A9270-GY; A9502; G0378; J0360; J1644; J2270; J2405; J2785

== ENCOUNTER 2019-03-16 12:33 | Emergency (ER) | payer MEDICARE ==
[2019-03-16] MEDS ORDERED: LORazepam TAB(*) 1 MG PO ONE (12:59)
[2019-03-16 14:03] LABS: ABS Basophils 0.1 10^3/ul (0-0.2); ABS Eosinophils 0.1 10^3/ul (0-0.6); ABS Monocytes 0.5 10^3/ul (0-0.8); ABS Neutrophils 3.9 10^3/ul (1.5-7.7); Eosinophil % 1.2 %; Hematocrit 42 % (35-47); Lymphocyte % 30.2 %; Mean Corpuscular HGB Conc 34 g/dL (31-36); Mean Corpuscular Hemoglobin 31 pg (27-31); Mean Corpuscular Volume 92 fL (80-97); Mean Platelet Volume 8.4 fL (7.4-10.4); Nucleated Red Blood Cells % 0.1; Platelet Count 299 10^3/uL (150-450); Red Blood Count 4.52 10^6 /uL (3.70-4.87); Red Cell Distribution Width 14 % (10-15); White Blood Count 6.6 10^3/uL (3.5-10.8)
[2019-03-16 14:14] LABS: Acetaminophen < 15 mcg/mL; Alcohol < 10 mg/dL (<10); Salicylate < 2.50 mg/dL (<30)
[2019-03-16 14:15] LABS: ALT 9 U/L (7-52); AST 15 U/L (13-39); Albumin 4.6 g/dL (3.2-5.2); Albumin/Globulin Ratio 1.4 (1-3); Alkaline Phosphatase 140 U/L (34-104); Anion Gap 12 mmol/L (2-11); BUN/Creatinine Ratio 14.9 (8-20); Blood Urea Nitrogen 13 mg/dL (6-24); CO2 Carbon Dioxide 25 mmol/L (22-32); Calcium 9.9 mg/dL (8.6-10.3); Chloride 102 mmol/L (101-111); EGFR African American 83.4 (>60); EGFR Non-African American 68.9 (>60); Globulin 3.3 g/dL (2-4); Glucose 97 mg/dL (70-100); Potassium 3.4 mmol/L (3.5-5.0); Sodium 139 mmol/L (135-145); Total Protein 7.9 g/dL (6.4-8.9)
[2019-03-16 14:19] LABS: HCG Pregnancy 4.35 mIU/mL
[2019-03-16 14:27] LABS: TSH (Thyroid Stimulating Horm) 0.66 mcIU/mL (0.34-5.60)
[2019-03-16] MEDS ORDERED: Al Hydrox/Mg Hydrox/Simet LIQ* 30 ML UDC PO PRN (16:59)
[2019-03-16] MEDS ORDERED: Acetaminophen TAB* 325 MG PO PRN (16:59)
[2019-03-16] MEDS ORDERED: Albuterol HFA INHALER* 8 gm MDI INH PRN (17:00)
[2019-03-16] MEDS ORDERED: CMC:Formoterol 20 MCG/2ML NEB (NF) 10 MCG/ML NEB.SOLN INH PRN (17:00)
[2019-03-16] MEDS ORDERED: hydrOXYzine HCL TAB* 50 MG PO PRN (17:03)
--- NOTE | 2019-03-16 17:17 | ED ---
Psychiatric Complaint - HPI Summary HPI Summary: This patient is a 48-year-old female presenting to the ED with thoughts of suicide. Patient states she is overwhelmed, cannot stop crying and is unable to take the pressure any more. She states her mother was recently diagnosed with breast cancer, her partner was recently placed in assisted and her son is having problems at school. She has no history of depression, anxiety or suicidal ideation. She states she has never felt this way in the past. She takes no medications for this. She has on medications and has other health problems, however psychiatric history. Arrival into the ED, patient is very tearful, unable to speak with provider at this time and appears extremely anxious, flailing her arms about, screaming in the room about the pressure she is under. She denies any HI. - History Of Current Complaint Chief Complaint: EDMentalHealth Time Seen by Provider: 03/16/19 12:46 Hx Obtained From: Patient ?: No Onset/Duration: Sudden Onset Timing: Constant Severity Initially: Severe Severity Currently: Severe Character: Manic, Depressed, Anxious, Angry, Frustrated Aggravating Factor(s): Recent Stress Alleviating Factor(s): Nothing Associated Signs And Symptoms: Positive: Hostile, Sleep Disturbance, Appetite Change, Social Withdrawal, Social Isolation Has Suicidal: Reports: Thoughts - Risk Factor(s) Completed Suicide Risk Factors: Negative - Allergies/Home Medications Allergies/Adverse Reactions: Allergies Allergy/AdvReac Type Severity Reaction Status Date / Time Sulfa (Sulfonamide Allergy Unknown Unknown Verified 03/16/19 12:45 Antibiotics) Reaction Details chemo cocktail Allergy Airway Uncoded 03/16/19 12:45 Obstruction PMH/Surg Hx/FS Hx/Imm Hx Previously Healthy: Yes Endocrine/Hematology History: Denies: Hx Diabetes, Hx Systemic Lupus Erythematosus Cardiovascular History: Reports: Other Cardiovascular Problems/Disorders - SARCOIDOSIS Denies: Hx Angina, Hx Congestive Heart Failure, Hx Coronary Artery Disease, Hx Hypercholesterolemia, Hx Hypertension, Hx Myocardial Infarction, Hx Pacemaker /ICD, Hx Valvular Heart Disease Respiratory History: Reports: Hx Asthma, Hx Sleep Apnea, Other Respiratory Problems/Disorders - SARCOIDOSIS; Sinusitis Denies: Hx Chronic Obstructive Pulmonary Disease (COPD) History: Reports: Hx Renal Disease - kidney stones 01/2011, Other Problems /Disorders - bladder lymphoma Denies: Hx Dialysis Musculoskeletal History: Denies: Hx Rheumatoid Arthritis Sensory History: Reports: Hx Contacts or Glasses Denies: Hx Hearing Aid Opthamlomology History: Reports: Hx Contacts or Glasses Neurological History: Reports: Hx Headaches Psychiatric History: Denies: Hx Eating Disorder, Hx Depression, Hx Panic Disorder, Hx Post Traumatic Stress Disorder, Hx Schizophrenia, Hx Bipolar Disorder - Cancer History Cancer Type, 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 Hx Chemotherapy: Yes - urinary bladder Hx Radiation Therapy: Yes - BLADDER - Surgical History Surgery Procedure, Year, and Place: jaw surgery with wires, bilat lung biopsy; lithrotripsy 2011 - Immunization History Date of Tetanus Vaccine: PT STATES UNSURE Date of Influenza Vaccine: NONE Hx Pertussis Vaccination: No Immunizations Up to Date: Yes Infectious Disease History: No Infectious Disease History: Reports: Hx Shingles Denies: Traveled Outside the [place] in Last 30 Days - Family History Known Family History: Negative: Cardiac Disease - Social History Occupation: Unemployed Lives: With Family Alcohol Use: Occasionally Alcohol Amount: 3 nights / week. 2/3 tall beers Substance Use Type: Reports: Marijuana Substance Use Comment - Amount & Last Used: last use today Hx Tobacco Use: No Smoking Status (MU): Never Smoked Tobacco Review of Systems Negative: Fever, Chills, Fatigue, Skin Diaphoresis Negative: Palpitations, Chest Pain Negative: Shortness Of Breath, Cough Negative: Arthralgia, Myalgia Negative: Rash, Bruising Neurological: Negative Positive: Anxious, Depressed All Other Systems Reviewed And Are Negative: Yes Physical Exam Triage Information Reviewed: Yes Vital Signs On Initial Exam: Initial Vitals Temp Pulse Resp BP Pulse Ox 96.9 F 73 18 156/104 99 03/16/19 12:40 03/16/19 12:40 03/16/19 12:40 03/16/19 12:40 03/16/19 12:40 Vital Signs Reviewed: Yes Appearance: Positive: Well-Nourished Skin: Positive: Warm, Skin Color Reflects Adequate Perfusion Head/Face: Positive: Normal Head/Face Inspection Eyes: Positive: Conjunctiva Clear, Other: - styes to the bilateral eyes Neck: Positive: Supple, No Lymphadenopathy Respiratory/Lung Sounds: Positive: Clear to Auscultation, Breath Sounds Present Cardiovascular: Positive: RRR, Pulses are Symmetrical in both Upper and Lower Extremities Musculoskeletal: Positive: Normal, Strength/ROM Intact Psychiatric: Positive: Affect/Mood Appropriate, Anxious, Depressed, Patient Uncooperative for Exam AVPU Assessment: Alert Procedures - Sedation Patient Received Moderate/Deep Sedation with Procedure: No Diagnostics - Vital Signs Vital Signs Temp Pulse Resp BP Pulse Ox 03/16/19 13:14 20 03/16/19 12:40 96.9 F 73 18 156/104 99 - Laboratory Lab Results: Lab Results 03/16/19 03/16/19 Range/Units 13:42 13:42 WBC 6.6 (3.5-10.8) 10^3/uL RBC 4.52 (3.70-4.87) 10^6 /uL Hgb 14.0 (12.0-16.0) g/dL Hct 42 (35-47) % MCV 92 (80-97) fL MCH 31 (27-31) pg MCHC 34 (31-36) g/dL RDW 14 (10-15) % Plt Count 299 (150-450) 10^3/uL MPV 8.4 (7.4-10.4) fL Neut % (Auto) 59.5 % Lymph % (Auto) 30.2 % Peach % (Auto) 8.2 % Eos % (Auto) 1.2 % Baso % (Auto) 0.9 % Absolute Neuts (auto) 3.9 (1.5-7.7) 10^3/ul Absolute Lymphs (auto) 2.0 (1.0-4.8) 10^3/ul Absolute Monos (auto) 0.5 (0-0.8) 10^3/ul Absolute Eos (auto) 0.1 (0-0.6) 10^3/ul Absolute Basos (auto) 0.1 (0-0.2) 10^3/ul Absolute Nucleated RBC 0.0 10^3/ul Nucleated RBC % 0.1 Sodium 139 (135-145) mmol/L Potassium 3.4 L (3.5-5.0) mmol/L Chloride 102 (101-111) mmol/L Carbon Dioxide 25 (22-32) mmol/L Anion Gap 12 H (2-11) mmol/L BUN 13 (6-24) mg/dL Creatinine 0.87 (0.51-0.95) mg/dL Est GFR ( Amer) 83.4 (>60) Est GFR (Non-Af Amer) 68.9 (>60) BUN/Creatinine Ratio 14.9 (8-20) Glucose 97 (70-100) mg/dL Calcium 9.9 (8.6-10.3) mg/dL Total Bilirubin 0.70 (0.2-1.0) mg/dL AST 15 (13-39) U/L ALT 9 (7-52) U/L Alkaline Phosphatase 140 H (34-104) U/L Total Protein 7.9 (6.4-8.9) g/dL Albumin 4.6 (3.2-5.2) g/dL Globulin 3.3 (2-4) g/dL Albumin/Globulin Ratio 1.4 (1-3) TSH 0.66 (0.34-5.60) mcIU/mL Beta HCG, Quant 4.35 mIU/mL Salicylates < 2.50 (<30) mg/dL Acetaminophen < 15 mcg/mL Serum Alcohol < 10 (<10) mg/dL Result Diagrams: 03/16/19 13:42 03/16/19 13:42 Lab Statement: Any lab studies that have been ordered have been reviewed, and results considered in the medical decision making process. Course/Dx - Course Course Of Treatment: On physical examination, patient is flowing arms about, screaming and very upset. She states she is unable to take the pressure. States she is dealing with a lot of problems right now. Endorses suicidal ideation. She does state she has 2 areas to her bilateral eyes which just popped up over the last 4 days. On physical examination, these appear to be styes. One to each lower eyelid. I have encouraged her to use warm compresses. Denies other pain or symptoms. Patient is cleared for evaluation. After evaluation, patient will be admitted or transferred. She is signed out to XIANG Vincent. - Differential Dx/Clinical Impression Differential Diagnosis/HQI/PQRI: Positive: Anxiety, Depression, Suicide Attempt , Suicidal Ideation, Suicidal Gesture Provider Diagnosis: Depressive disorder Discharge ED - Sign-Out/Discharge Documenting (check all that apply): Sign-Out Patient Signing out patient TO: Alexi Mckoy - Discharge Plan Condition: Fair Referrals: Gustabo Rincon MD [Primary Care Provider] - - Billing Disposition and Condition Condition: FAIR - Attestation Statements Provider Attestation: I have seen the patient with the MARIA TERESA and agree with the plan and documentation below except as noted: This is a 48 y/o female with depression and anxiety presents with suicidal ideation. Patient with significant life stressors, admit to psych for depression. Leann Torres MD
[2019-03-16 21:32] LABS: Urine Appearance Clear; Urine Bilirubin Negative (Negative); Urine Blood Negative (Negative); Urine Color Yellow; Urine Glucose Negative (Negative); Urine Ketones 1+ (Negative); Urine Nitrite Negative (Negative); Urine Protein Negative (Negative); Urine Specific Gravity 1.014 (1.010-1.030); Urine Urobilinogen Negative (Negative)
[2019-03-16 21:48] LABS: Urine Benzodiazepine Screen None Detected (None Detect); Urine Opiates Screen None Detected (None Detect)
[2019-03-16] MEDS: CMCS:Meloxicam(NF) 7.5 MG TAB PO SCH (21:59)
[2019-03-16] MEDS: Gabapentin CAP(*) 400 MG PO SCH ×2 (22:00→22:32)
[2019-03-16] MEDS: Mometasone/Formoter 200/5 MDI INH SCH (22:01)
[2019-03-16] MEDS: PARoxetine HCL TAB* 20 MG PO SCH (22:01)
[2019-03-16] MEDS: Metoprolol Tartrate TAB* 25 MG PO SCH (22:06)
[2019-03-17] MEDS ORDERED: Potassium Chlor TAB* 20 MEQ TAB.ER PO ONE (04:14)
--- NOTE | 2019-03-17 04:19 | ED ---
Progress - Progress Note Progress Note: Patient is a sign-out at 02:30 on 03/17/19 from XIANG Vincent to Dr. Brittany Christian MD at shift change, pending further workup and disposition. At 04:14, resource technician reports that the patient will be transferred to [facility] pending acceptance. Patient requires transfer to another facility as there are no appropriate beds available at [facility]. At 04:23, XIANG Joe accepts the patient as a transfer at [facility]. Patient will be transferred after 09:00 after a bed is made available for the patient. Patient will be transferred to [facility] with a diagnosis of depression and suicidal ideation. Course/Dx - Course Course Of Treatment: Patient is a sign-out at 02:30 on 03/17/19 from XIANG Vincent [address] Dr. Brittany Christian MD at shift change, pending further workup and disposition. At 04:14, resource technician reports that the patient will be transferred to [facility] pending acceptance. Patient requires transfer to another facility as there are no appropriate beds available at [facility]. At 04:23, XIANG Joe accepts the patient as a transfer at [facility]. Patient will be transferred after 09:00 after a bed is made available for the patient. Patient will be transferred to [facility] with a diagnosis of depression and suicidal ideation. - Diagnoses Provider Diagnoses: Depressive disorder, Suicidal ideation - Provider Notifications Discussed Care Of Patient With: Shahriar Cintron - At 04:23, XIANG Joe accepts the patient as a transfer at [facility]. Patient will be transferred after 09: 00 after a bed is made available for the patient. Time Discussed With Above Provider: 04:23 Instructed by Provider To: Transfer Reason For Transfer: No beds available. Discharge ED - Sign-Out/Discharge Documenting (check all that apply): Patient Departure - Transfer - Discharge Plan Condition: Stable Disposition: TRANS HIGHER LVL OF CARE FAC Referrals: Gustabo Rincon MD [Primary Care Provider] - - Billing Disposition and Condition Condition: STABLE Disposition: Trans Higher Lvl of Care Fac - Attestation Statements Document Initiated by Scribe: Yes Documenting Scribe: Sariah Verde Provider For Whom Scribe is Documenting (Include Credential): Brittany Qiu MD Scribe Attestation: I, Sariah Verde, scribed for Brittany Christian MD on 03/17/19 at 0555. Scribe Documentation Reviewed: Yes Provider Attestation: The documentation as recorded by the scribe, Sariah Verde accurately reflects the service I personally performed and the decisions made by me, Brittany Christian MD Status of Scribe Document: Viewed
[2019-03-17 08:26] VITALS: BP 118/69
[2019-03-17 08:58] LABS: HDL Cholesterol 50.4 mg/dL
[2019-03-17] MEDS ORDERED: LEFLUNOMIDE 20 MG PO SCH (09:00)
[2019-03-17] MEDS ORDERED: Folic Acid TAB* 1 MG PO SCH (09:00)
[2019-03-17] MEDS ORDERED: Pantoprazole TAB * 40 MG TAB PO SCH (09:00)
[2019-03-17] MEDS ORDERED: Lisinopril TAB* 5 MG PO SCH (09:00)
[2019-03-17] MEDS: CMCS:Meloxicam(NF) 7.5 MG TAB PO SCH (09:23)
[2019-03-17] MEDS: Gabapentin CAP(*) 400 MG PO SCH (09:23)
[2019-03-17] MEDS: PARoxetine HCL TAB* 20 MG PO SCH (09:24)
[2019-03-17] MEDS: Mometasone/Formoter 200/5 MDI INH SCH (09:24)
[2019-03-17] MEDS: Metoprolol Tartrate TAB* 25 MG PO SCH (09:24)
== END 2019-03-17 11:08 | disposition short-term general hospital (02) ==
LOC: ED 12:33
DX: R45.851 Suicidal ideations (principal); F32.9 Major depressive disorder, single episode, unspecified; D86.9 Sarcoidosis, unspecified; Z87.442 Personal history of urinary calculi; Z85.51 Personal history of malignant neoplasm of bladder; Z88.2 Allergy status to sulfonamides; Z88.8 Allergy status to other drugs, medicaments and biological substances
CPT/HCPCS: 36415; 80053; 80061; 80307; 80320; 80329; 81003; 83036; 84443; 84702; 85025; 93005; 99285; A9270-GY; G0480